=== PATIENT | female | born 1995 | race Caucasian/White ===

== ENCOUNTER 2023-07-28 14:32 | Emergency (ER) | payer SELFPAY ==
[2023-07-28 14:34] VITALS: BP 142/97; PULSE 102; RESP 18; TEMP 36.6; O2SAT 98; BMI 51.5
--- NOTE | 2023-07-28 14:44 | EDS_ITS ---
HPI <ATA uBchanan - Last Filed: 07/28/23 17:00> History of Present Illness Chief Complaint: Sore Throat Narrative Narrative: 27-year-old female developed a sore throat 5 days ago with intermittent fever. The next day she developed a muffled voice and it hurts a lot to swallow. She is able to tolerate secretions and drink water. She was seen in urgent care today and sent over to rule out peritonsillar abscess. PFSH <AAT Buchanan - Last Filed: 07/28/23 17:00> PFSH Home Medications amoxicillin 875 mg-potassium clavulanate 125 mg tablet 1 tab PO BID #19 tabs 07/28/23 [Rx Last Taken Unknown] amoxicillin 875 mg-potassium clavulanate 125 mg tablet 1 tab PO BID 7 days #14 tabs 07/28/23 [Rx Last Taken Unknown] Allergy/AdvReac Type Severity Reaction Status Date / Time No Known Allergies Allergy Verified 07/28/23 14:34 Social History Smoking Status: Never smoker ROS <ATA Buchanan - Last Filed: 07/28/23 17:00> ROS ED ROS Narrative Constitutional: Positive for fever. ENT: Positive for sore throat. Respiratory: Negative for shortness of breath, cough. GI: Negative for nausea, vomiting. Neuro: Negative for headache. EXAM <ATA Buchanan - Last Filed: 07/28/23 17:00> Physical Exam Narrative Exam Narrative: CONST: Patient sitting in no acute distress. EYES: Normal inspection. ENT: Moist mucous membranes, symmetrically enlarged tonsils with exudate both to uching the uvula with no deviation, airway patent. Slight trismus and muffled voice, handling secretions normally, no drooling or stridor. NECK: Normal inspection. Trachea midline, left cervical fullness and tenderness. RESP: No respiratory distress, CTAB. CVS: Regular rate and rhythm, no murmur, no gallop. SKIN: Color normal, no rash, warm, dry, intact. EXTREMITIES: Normal appearance, no pedal edema. NEURO: Oriented x4. PSYCH: Normal affect. Const Vital Signs: 07/28/23 14:34 Temperature 97.8 F Temperature Source Temporal Pulse Rate 102 H Respiratory Rate 18 Blood Pressure 142/97 H Blood Pressure Mean 112 Pulse Ox 98 Oxygen Delivery Method Room Air <Dr. Uziel Kerr DO - Last Filed: 07/28/23 19:25> Physical Exam Const Vital Signs: 07/28/23 14:34 Temperature 97.8 F Temperature Source Temporal Pulse Rate 102 H Respiratory Rate 18 Blood Pressure 142/97 H Blood Pressure Mean 112 Pulse Ox 98 Oxygen Delivery Method Room Air MDM <ATA Buchanan - Last Filed: 07/28/23 17:00> [facility] Narrative Medical decision making narrative: Patient has 5 days of sore throat and has mild trismus and muffled voice on exam. She states the symptoms have been present for 4 days. She is able to speak in full sentences and is protecting her airway. Heart rate 102, otherwise normal vital signs. Tonsils appear symmetric but she has left submental and cervical lymphadenopathy fullness. Will rule out peritonsillar abscess with labs and a CT. She has a white count of 14.0. Hemoglobin is 10.3 with no prior for comparison. BMP unremarkable. CT shows evidence of tonsillitis but no fluid collection. There is mild left submandibular lymphadenopathy which explains the fullness on exam. She was treated with IV fluids, Augmentin, Decadron, and Toradol and return precautions discussed. She was discharged in stable condition. Lab Data Attestation: I reviewed the patient's lab results. Labs: Laboratory Results - last 24 hr 07/28/23 15:25 WBC 14.0 H RBC 3.57 L Hgb 10.3 L Hct 32.6 L MCV 91.3 MCH 28.9 MCHC 31.6 L RDW Std Deviation 43.4 RDW Coeff of [place] 12.9 Plt Count 407 MPV 9.0 Immature Gran % (Auto) 0.600 Neut % (Auto) 74.9 H Lymph % (Auto) 13.3 L [place] % (Auto) 8.2 Eos % (Auto) 2.5 Baso % (Auto) 0.5 Absolute Neuts (auto) 10.5 H Absolute Lymphs (auto) 1.87 Nucleated RBC % 0 Differential Comment SEE COMMENT Platelet Estimate MOD DEC RBC Morphology N CHROM Anisocytosis RARE Macrocytosis RARE Sodium 138 Potassium 3.7 Chloride 106 Carbon Dioxide 29.0 Anion Gap 3 L BUN 7 Creatinine 0.60 Estim Creat Clear Calc 124.49 Est GFR (MDRD) Af Amer 150 Est GFR (MDRD) Non-Af 124 BUN/Creatinine Ratio 11.6 Glucose 93 Calcium 8.5 Radiography Diagnostic Testing: Clinical Impression(s) from Imaging Studies Soft Tissue Neck CT 07/28/23 14:54 IMPRESSION: Enlarged tonsils bilaterally without congenital collection appreciated. Mild left submandibular adenopathy. Bilateral cervical adenopathy, left more than right. Right thyroid nodules. Electronically Signed: Maurisio Haddad DO at 16:26 EST Reading Location ID and State: [facility] / [place] Tel [phone], Service support , <Dr. Uziel Kerr, DO - Last Filed: 07/28/23 19:25> MDM MDM Narrative Medical decision making narrative: Patient has 5 days of sore throat and has mild trismus and muffled voice on exam. She states the symptoms have been present for 4 days. She is able to speak in full sentences and is protecting her airway. Heart rate 102, otherwise normal vital signs. Tonsils appear symmetric but she has left submental and cervical lymphadenopathy fullness. Will rule out peritonsillar abscess with labs and a CT. She has a white count of 14.0. Hemoglobin is 10.3 with no prior for comparison. BMP unremarkable. CT shows evidence of tonsillitis but no fluid collection. There is mild left submandibular lymphadenopathy which explains the fullness on exam. She was treated with IV fluids, Augmentin, Decadron, and Toradol and return precautions discussed. She was discharged in stable condition. This patient was seen with a PA/[employer] Individually assessed they patient including history and physical. I have reviewed everything on the chart that is available and agree with the documentation provided by the PA/[employer] including discussion about the assessment, treatment plan, discussion, and return precautions. 27-year-old female presenting with 5 days of sore throat, mild trismus. She is tolerating her own secretions. Stable speaking full sentences. Differential includes tonsillitis, peritonsillar abscess, tonsillar abscess, retropharyngeal abscess. CBC was obtained to assess white blood cell count, hemoglobin, platelets, BMP to assess renal function and electrolytes. Patient medicated with Decadron, Toradol, IV fluids. CT of the neck shows enlarged tonsils with lymphadenopathy. Cell count mildly elevated 14.1. Hemoglobin 10.3 patient feeling better on examination. She will be given a prescription for Augmentin and she will use [id number] NSAIDs. Return precautions were discussed. Impression: 1. Tonsillitis Lab Data Labs: Laboratory Results - last 24 hr 07/28/23 15:25 WBC 14.0 H RBC 3.57 L Hgb 10.3 L Hct 32.6 L MCV 91.3 MCH 28.9 MCHC 31.6 L RDW Std Deviation 43.4 RDW Coeff of [place] 12.9 Plt Count 407 MPV 9.0 Immature Gran % (Auto) 0.600 Neut % (Auto) 74.9 H Lymph % (Auto) 13.3 L [place] % (Auto) 8.2 Eos % (Auto) 2.5 Baso % (Auto) 0.5 Absolute Neuts (auto) 10.5 H Absolute Lymphs (auto) 1.87 Nucleated RBC % 0 Differential Comment SEE COMMENT Platelet Estimate MOD DEC RBC Morphology N CHROM Anisocytosis RARE Macrocytosis RARE Sodium 138 Potassium 3.7 Chloride 106 Carbon Dioxide 29.0 Anion Gap 3 L BUN 7 Creatinine 0.60 Estim Creat Clear Calc 124.49 Est GFR (MDRD) Af Amer 150 Est GFR (MDRD) Non-Af 124 BUN/Creatinine Ratio 11.6 Glucose 93 Calcium 8.5 Radiography Diagnostic Testing: Clinical Impression(s) from Imaging Studies Soft Tissue Neck CT 07/28/23 14:54 IMPRESSION: Enlarged tonsils bilaterally without congenital collection appreciated. Mild left submandibular adenopathy. Bilateral cervical adenopathy, left more than right. Right thyroid nodules. Electronically Signed: Maurisio Haddad DO at 16:26 EST Reading Location ID and State: [address] [place] [address] Tel [phone], Service support , Discharge Plan Triage Chief Complaint: Sore Throat ED Midlevel Provider: Marlys Banerjee ED Provider: Uziel Kerr Dx/Rx/DC Orders Clinical Impression: Acute tonsillitis Instructions: ED Tonsillitis Prescriptions: New amoxicillin-pot clavulanate 875-125 mg tablet 1 tab PO BID Qty: 19 0RF amoxicillin-pot clavulanate 875-125 mg tablet 1 tab PO BID 7 Days Qty: 14 0RF Primary Care Provider: Care Physician,No Primary Referrals: Care Physician,No Primary [Primary Care Provider] - Activity Restrictions/Additional Instructions: You were given antibiotics to treat strep. Drink fluids and take Tylenol or ibuprofen as needed. Disposition Disposition: Home, Self Care Discharge Date/Time: 07/28/23 16:52
--- NOTE | 2023-07-28 14:54 | CT_ITS ---
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 A radiation dose optimization technique was used for this scan. IV Contrast dosage and agent: RADIATION DOSAGE (If Supplied By Facility): CTDIvol = ( 16.89 ) mGy, DLP = ( 468.31 ) mGycm COMPARISON: FINDINGS: NASOPHARYNX: Unremarkable. SUPRAHYOID NECK: Enlarged tonsils bilaterally without congenital collection appreciated. INFRAHYOID NECK: Unremarkable larynx, hypopharynx, and supraglottis. THYROID: Right thyroid nodules. SALIVARY GLANDS: Unremarkable. LYMPH NODES: Mild left submandibular adenopathy. Bilateral cervical adenopathy, left more than right. VASCULAR STRUCTURES: Unremarkable. VISUALIZED PORTIONS OF THE ORBITS, PARANASAL SINUSES, MASTOID AIR CELLS AND SKULL BASE: Unremarkable. BONES: Unremarkable. THORACIC INLET: Clear lung apices. CT/Soft Tissue Neck WITH Contrast IMPRESSION: Enlarged tonsils bilaterally without congenital collection appreciated. Mild left submandibular adenopathy. Bilateral cervical adenopathy, left more than right. Right thyroid nodules. Electronically Signed: Maurisio Haddad DO at 16:26 EST Reading Location ID and State: [facility] / [place] Tel [phone], Service support ,
[2023-07-28] MEDS: 0.9% Normal Saline (1000mL) 1,000 ML 999 ML IV (15:10)
[2023-07-28] MEDS: dexAMETHasone 10 MG/ML Vial PO.IVFORM (15:11)
[2023-07-28 15:37] LABS: Absolute Lymphocyte Count 1.87 X10^3/uL (0.83-4.51); Absolute Neutrophil Count 10.5 X10^3/uL (2.0-7.7); Basophil# 0.07 X10^3/uL; Basophil% 0.5 % (0-1); Eosinophil# 0.35 X10^3/uL; Eosinophils% 2.5 % (0-5); Hematocrit 32.6 % (37-47); Hemoglobin 10.3 g/dL (12.0-15.0); Lymphocyte # 1.87 X10^3/ul (0.83-4.51); Lymphocyte % 13.3 % (19-41); Mean Corp Hgb Conc 31.6 g/dL (32-36); Mean Corpuscular Hgb 28.9 pg (27.0-32.0); Mean Corpuscular Volume 91.3 fL (81-99); Monocyte# 1.15 X10^3/uL; Monocyte% 8.2 % (0-10); NRBC Flagged by Analyzer 0 % (0-5); Neutrophil # 10.49 X10^3/uL (2.7-7.7); Neutrophil % 74.9 % (47-70); Platelet Count 407 K/mm3 (150-450); RBC Distribution Width CV 12.9 % (11.6-14.6); RBC Distribution Width SD 43.4 fl (35.1-43.9); Red Blood Count 3.57 M/mm3 (4.2-5.4)
[2023-07-28 15:47] LABS: Anisocytosis RARE; Macrocytosis RARE; Platelet Estimate MOD DEC (ADEQ); Red Cell Morphology N CHROM NORMAL (NORM C&C)
[2023-07-28 15:53] LABS: Anion Gap 3 (5-15); BUN 7 mg/dL (7-18); BUN/Creat Ratio 11.6 RATIO (10-20); Calcium,Total 8.5 mg/dL (8.5-10.1); Chloride 106 mmol/L (98-107); EST Glomerular Filtration Rate 124 mL/min (>60); Est Glom Filt Rate - Afr Amer 150 mL/min (>60); Estimated Creatinine Clearance 124.49 ml/min; Glucose 93 mg/dL (74-106); Potassium 3.7 mmol/L (3.5-5.1); Sodium Level 138 mmol/L (136-145)
[2023-07-28] MEDS: Ketorolac 15 MG/ML Vial IV (16:43)
[2023-07-28] MEDS: Amox/Clavulanate 875 MG Tablet PO (16:44)
== END 2023-07-28 16:52 | disposition home or self-care (01) ==
PROVIDERS: Physician Assistant; Emergency Provider Student in an Organized Health Care Education/Training Program; Visit Provider Student in an Organized Health Care Education/Training Program
DX: J03.90 Acute tonsillitis, unspecified (principal)
CPT/HCPCS: 70491; 80048; 85025; 96361; 96372; 96374; 99282; J7030; Q9967; A4216